=== PATIENT | female | born 1935 | race Caucasian/White ===

== ENCOUNTER 2019-01-18 11:50 | Inpatient (IN) | payer MEDICARE ==
--- NOTE | 2019-01-18 12:22 | ED ---
Altered Mental Status - HPI Summary HPI Summary: This patient is an 83 year old F presenting to ED accompanied by son and daughter with a chief complaint of visual hallucinations. She said that there was an episode where she states there was a person sitting on her cough for the last couple of hours when there was nothing there. The patient lives alone. The patient rates the pain 0/10 in severity. Symptoms aggravated by nothing. Symptoms alleviated by nothing. Patient denies any pain. The son also reports that the patient has been SOB recently upon exertion but the patient does not complain of it. PMHx of dementia, CAD, and stents. Son denies any prior psychiatric issues. - History Of Current Complaint Chief Complaint: EDShortnessOfBreath Stated Complaint: SOB/HALLUCINATING PER PT Time Seen by Provider: 01/18/19 12:07 Hx Obtained From: Patient, Family/Volunteer Fire Fighter - accompanied by son and daugheer Onset/Duration: Still Present Timing: Intermittent Severity Currently: None Aggravating Factor(s): Nothing Alleviating Factor(s): Nothing - Allergies/Home Medications Allergies/Adverse Reactions: Allergies Allergy/AdvReac Type Severity Reaction Status Date / Time No Known Allergies Allergy Verified 01/18/19 13:11 Home Medications: Home Medications Aspirin EC TAB* [Ecotrin EC Low Dose 81 MG*] 81 mg PO DAILY 01/18/19 [History Confirmed 01/18/19] Atorvastatin* [Lipitor*] 40 mg PO DAILY 01/18/19 [History Confirmed 01/18/19] Calcium/Vitamin D TAB 250/125* [Oscal D TAB 250/125*] 500 mg PO DAILY 01/18/19 [ History Confirmed 01/18/19] Donepezil TAB* [Aricept 5 MG TAB*] 10 mg PO BEDTIME 01/18/19 [History Confirmed 01/18/19] Losartan TAB* [Cozaar TAB*] 100 mg PO DAILY 01/18/19 [History Confirmed 01/18/19 ] PARoxetine HCL TAB* [Paxil TAB*] 10 mg PO DAILY 01/18/19 [History Confirmed 06/29] amLODIPine TAB* [Norvasc 5 mg TAB*] 5 mg PO DAILY 01/18/19 [History Confirmed ] PMH/Surg Hx/FS Hx/Imm Hx Cardiovascular History: Reports: Hx Coronary Artery Disease, Other Cardiovascular Problems/Disorders - stents Neurological History: Reports: Hx Dementia Infectious Disease History: No Infectious Disease History: Denies: Traveled Outside the [place] in Last 30 Days - Family History Known Family History: Negative: Cardiac Disease, Hypertension, Diabetes - Social History Alcohol Use: None Hx Substance Use: No Substance Use Type: Reports: None Hx Tobacco Use: No Smoking Status (MU): Never Smoked Tobacco Review of Systems Positive: Other - denies any pain Positive: Shortness Of Breath - per the son, but patient does not complain of such Neurological: Other - visual hallucinations, hx of dementia All Other Systems Reviewed And Are Negative: Yes Physical Exam - Summary Physical Exam Summary: VITAL SIGNS: Reviewed. GENERAL: Patient is an elderly FEMALE who is lying comfortable in the stretcher and in no acute distress. Patient is not in any acute respiratory distress. HEAD AND FACE: No signs of trauma. No ecchymosis, hematomas or skull depressions. No sinus tenderness. EYES: PERRLA, EOMI x 2, No injected conjunctiva, no nystagmus. EARS: Hearing grossly intact. Ear canals and tympanic membranes are within normal limits. MOUTH: Oropharynx within normal limits. NECK: Supple, trachea is midline, no adenopathy, no JVD, no carotid bruit, no c- spine tenderness, neck with full ROM. CHEST: Symmetric, no tenderness at palpation LUNGS: Clear to auscultation bilaterally. No wheezing or crackles. CVS: Regular rate and rhythm, S1 and S2 present, no murmurs or gallops appreciated. ABDOMEN: Soft, non-tender. No signs of distention. No rebound no guarding, and no masses palpated. Bowel sounds are normal. EXTREMITIES: FROM in all major joints, no edema, no cyanosis or clubbing. NEURO: Demented, Alert but not oriented. Speech is normal and follows commands. SKIN: Dry and warm GCS: 15 Triage Information Reviewed: Yes Vital Signs On Initial Exam: Initial Vitals Temp Pulse Resp BP Pulse Ox 98.5 F 93 16 142/89 98 01/18/19 11:55 01/18/19 11:55 01/18/19 11:55 01/18/19 11:55 01/18/19 11:55 Vital Signs Reviewed: Yes Diagnostics - Vital Signs Vital Signs Temp Pulse Resp BP Pulse Ox 01/18/19 11:55 98.5 F 93 16 142/89 98 - Laboratory Result Diagrams: 01/18/19 12:59 01/18/19 12:59 Lab Statement: Any lab studies that have been ordered have been reviewed, and results considered in the medical decision making process. - Radiology CXR Radiology Interpretation Completed By: Radiologist Summary of Radiographic Findings: 1. CHRONIC FINDINGS INCLUDE APPEARANCE OF CHRONIC OBSTRUCTIVE PULMONARY DISEASE WELL MILD CARDIOMEGALY. 2. THERE IS AN AGE-INDETERMINATE LOWER THORACIC WEDGE COMPRESSION FRACTURE. Dr. Seals has reviewed this radiology report. - CT Brain CT CT Interpretation Completed By: Radiologist Summary of CT Findings: 1. NO EVIDENCE FOR ACUTE INTRACRANIAL ABNORMALITY. 2. FINDINGS SUGGESTIVE OF MILD CHRONIC SMALL VESSEL ISCHEMIC CHANGES. Dr. Seals has reviewed this radiology report. - EKG 1226 Cardiac Rate: Tachycardia - 101 BPM EKG Rhythm: Sinus Tachycardia Summary of EKG Findings: Sinus tachycardia at [address] elevations in V1 to V3 1542 Cardiac Rate: NL - 88 BPM EKG Rhythm: Sinus Rhythm EKG Comparison: No Significant Change - from prior EKG at [address] elevations in V1to V3 Re-Evaluation - Re-Evaluation First Eval Re-Evaluation Time: 15:25 Comment: Spoke with the patient's family about her results. Second Eval Re-Evaluation Time: 15:33 Comment: Spoke with patient's family about the consult with Dr. Salter. Third Eval Re-Evaluation Time: 15:37 Comment: Had a long discussion with the son and daughter, Ayah, who is the proxy for the patient. Following the patients wishes, she doesnt want anything invasive done. The son also agrees. They just want medical treatment. Altered Mental Statu Course/Dx - Course Assessment/Plan: This patient is an 83-year-old female who presents to the emergency room with the patients son complaining that the patient is having hallucinations, visual and auditory, and shortness of breath findings for one week and half. The patient reports that she does have any complaints and she denies any chest pain. The patient is alert and not oriented. Patient has past medical history significant for CAD, hypertension, dyslipidemia. Patient has no other complaints. Blood test results without any significant abnormality except for carbon dioxide is 20, creatinine is 1, total bili is 1.4 , CK-MB is 8.2, troponin 0.05. BNP is more than 1300 significant for CHF exacerbation. In the ER the patient was placed in a wire drawing die maker, and she was given an aspirin since the troponin was elevated. Patient was also given Lasix for the CHF. The urinalysis is positive for UTI. The patient was given Rocephin IV. EKG is a sinus rhythm with ST elevations in V1 and V2 and V3 with no significant reciprocal changes. Discussed the case with the patients daughter with the medical proxy and they recommend only medical treatment. The patients daughter reports that the patient doesnt want any aggressive treatment, no CPR and no intubation. Nhi Goode SKEET OPERATOR patient and from the hospital services extensively explained to the patients daughter and son about the risks and benefits of catheterization but the patients son and daughter only want medical treatment for this patient. There will sign the DNR/DNI with the hospitalist services. Patient is alert but not oriented and she is hemodynamically stable. Discussed the case with Dr. Mortensen from the hospitalist services who accepted the patient for admission. - Diagnoses Provider Diagnoses: CHF exacerbation, Elevated troponin During the Visit The Following Alert/Code Occurred: STEMI - Provider Notifications Discussed Care Of Patient With: Riley Lucia Time Discussed With Above Provider: 14:27 Instructed by Provider To: Other - Consulted Dr. Lucia about the patient's case and he accepts the patient for admission. Spoke with Dr. Headley at 1524 and he says to consult with Dr. Salter. Spoke with Dr. Salter at 1530 about the patient's case about the patient and her familys wishes and Dr. Salter agrees with the family. Therefore, no catheterizations will be done. Spoke with Dr. Salter at 1538 and he says to give ASA and heparin and to do an echo. - Critical Care Time Critical Care Time: 30-74 min Discharge - Sign-Out/Discharge Documenting (check all that apply): Patient Departure - admit Patient Received Moderate/Deep Sedation with Procedure: No - Discharge Plan Condition: Stable Disposition: ADMITTED TO [facility] - Billing Disposition and Condition Condition: STABLE Disposition: Admitted to [facility] - Attestation Statements Document Initiated by Scribe: Yes Documenting Scribe: Jono Seymour Provider For Whom Scribe is Documenting (Include Credential): Bryce Seals MD Scribe Attestation: I, Jono Seymour, scribed for Bryce Seals MD on 01/18/19 at 1851. Scribe Documentation Reviewed: Yes Provider Attestation: The documentation as recorded by the scribeJono accurately reflects the service I personally performed and the decisions made by me, Bryce Seals MD Status of Scribe Document: Viewed
[2019-01-18 13:12] LABS: ABS Basophils 0.1 10^3/ul (0-0.2); ABS Eosinophils 0.1 10^3/ul (0-0.6); ABS Lymphocytes 0.7 10^3/ul (1.0-4.8); ABS Monocytes 0.5 10^3/ul (0-0.8); ABS Neutrophils 3.8 10^3/ul (1.5-7.7); Eosinophil % 2.1 %; Hematocrit 39 % (35-47); Lymphocyte % 13.7 %; Mean Corpuscular HGB Conc 34 g/dL (31-36); Mean Corpuscular Hemoglobin 30 pg (27-31); Mean Corpuscular Volume 90 fL (80-97); Mean Platelet Volume 8.9 fL (7.4-10.4); Platelet Count 168 10^3/uL (150-450); Red Blood Count 4.33 10^6 /uL (3.70-4.87); Red Cell Distribution Width 15 % (10.5-15); White Blood Count 5.1 10^3/uL (3.5-10.8)
[2019-01-18 13:36] LABS: ALT 7 U/L (7-52); AST 25 U/L (13-39); Albumin/Globulin Ratio 1.5 (1-3); Alkaline Phosphatase 60 U/L (34-104); Anion Gap 10 mmol/L (2-11); Blood Urea Nitrogen 22 mg/dL (6-24); C Reactive Protein 2.72 mg/L (<8.01); CO2 Carbon Dioxide 20 mmol/L (22-32); Calcium 9.1 mg/dL (8.6-10.3); Chloride 109 mmol/L (101-111); Creatine Kinase 176 U/L (10-223); EGFR African American 63.8 (>60); EGFR Non-African American 52.7 (>60); Globulin 2.6 g/dL (2-4); Glucose 97 mg/dL (70-100); Potassium 4.1 mmol/L (3.5-5.0); Sodium 139 mmol/L (135-145); Total Protein 6.6 g/dL (6.4-8.9)
[2019-01-18 13:41] LABS: CKMB ng/mL 8.2 ng/mL (0.6-6.3)
[2019-01-18 13:46] LABS: Troponin I 0.05 ng/mL (<0.04)
[2019-01-18] MEDS ORDERED: Furosemide IV* 10 MG/ML 2 ML VIAL (20 MG) IV ONE (14:31)
[2019-01-18 15:17] LABS: Urine Appearance Cloudy; Urine Bacteria 2+ (Absent); Urine Bilirubin Negative (Negative); Urine Blood 2+ (Negative); Urine Color Yellow; Urine Glucose Negative (Negative); Urine Ketones Trace (Negative); Urine Nitrite Positive (Negative); Urine Protein Negative (Negative); Urine Red Blood Cell Trace(0-2/hpf) (Absent); Urine Specific Gravity 1.015 (1.010-1.030); Urine Urobilinogen Negative (Negative); Urine White Blood Cell Trace(0-5/hpf) (Absent)
[2019-01-18] MEDS ORDERED: cefTRIAXone(*) 1 GM in NS 0.9% 50 ML* 50 ML IVPB ONE (15:20)
[2019-01-18] MEDS ORDERED: Aspirin 81 mg CHEW TAB* 81 MG TAB.CHEW PO ONE (15:38)
[2019-01-18] MEDS ORDERED: Heparin for STEMI(*) 5,000 UNITS/ML 1 ML VIAL IV ONE (15:39)
[2019-01-18] MEDS ORDERED: Acetaminophen TAB* 325 MG PO PRN (15:53)
[2019-01-18 16:47] LABS: Troponin I 0.06 ng/mL (<0.04)
[2019-01-18] MEDS ORDERED: Lorazepam PYXIS KEY PRN (16:51)
[2019-01-18] MEDS ORDERED: cefTRIAXone(*) 1 GM in NS 0.9% 50 ML* 50 ML IVPB SCH (17:06)
[2019-01-18] MEDS: Heparin DRIP 25,000 UNITS(*) 25,000 UNITS/500 ML BAG IV SCH ×2 (18:08→19:12)
[2019-01-18] MEDS: LORazepam INJ* 2 MG/ML 1 ML VIAL IV PUSH PRN (18:22)
--- NOTE | 2019-01-18 18:36 | HP ---
CC: Dr. Antonella Obrien * HISTORY AND PHYSICAL: DATE OF ADMISSION: 01/18/19 PRIMARY CARE PROVIDER: Dr. Antonella Obrien. ATTENDING PHYSICIAN: Dr. Riley Lucia * (dictated by AUDRA Martin). CHIEF COMPLAINT: Dyspnea on exertion x1 week. HISTORY OF PRESENT ILLNESS: Radha Baker is an 83-year-old white female with past medical history of coronary artery disease, status post 2 stents 20 years ago, anxiety, depression, hypertension, hyperlipidemia and dementia, who presents to the emergency department on direction of her primary care provider' s office. The patient is accompanied by her daughter who is her healthcare provider as well as her son, who provide the vast majority of the patient's history given that the patient is confused at baseline. The patient's daughter reports that the patient has been short of breath at home where the patient lives with her daughter. The shortness of breath has been going on for about 1 week and was especially worsened yesterday and today. This shortness of breath is not occurring at rest, only with exertion. The daughter has not noticed cough. The patient has not complained of difficulty breathing or chest pain, but the daughter does admit that she does not complain of pain very often. When asked directly, the patient denies abdominal pain, shortness of breath, fever, chills, chest pain, nausea, vomiting. The patient additionally denies dysuria. Additionally, the daughter reports that the patient was having visual hallucinations including the patient reporting that she saw a person on the living room couch who was not there and she does not normally have these hallucinations. EMERGENCY DEPARTMENT COURSE: In the emergency department, the patient received 20 mg of IV Lasix. Pertinent labs include BNP over 13,000, troponin of 0.05. When the patient arrived to the emergency department, her vital signs were temperature 98.5, pulse rate 93, respiratory rate 16, oxygen saturation 98% on room air, blood pressure 142/89. Hospitalists were then asked to evaluate the patient for admission. PAST MEDICAL HISTORY: 1. Coronary artery disease, status post 2 stents in 1998. 2. Osteoarthritis. 3. Anxiety. 4. Depression. 5. Hyperlipidemia. 6. Hypertension. 7. Dementia. 8. History of rectal prolapse. 9. History of uterovaginal prolapse. PAST SURGICAL HISTORY: 1. Repair of rectal prolapse. 2. Repair of vaginal prolapse. 3. PCI in 1998. HOME MEDICATIONS: 1. Aspirin 81 mg p.o. daily. 2. Amlodipine 5 mg p.o. daily. 3. Losartan 100 mg p.o. daily. 4. Paxil 10 mg p.o. daily. 5. Donepezil 10 mg p.o. at bedtime. 6. Lipitor 40 mg p.o. daily. 7. Os-Bryson D tab 50/125 two tabs daily. ALLERGIES: No known drug allergies. FAMILY HISTORY: Father of an [place] in his early 70s. Mother of complications of liver disease in her early 70s. SOCIAL HISTORY: The patient smoked very infrequently in her early 20s, and since then, has not smoked. Denies alcohol and drug use. The patient does not work and is . She has 5 children and currently lives with her daughter, Avril Boyce, who is her healthcare proxy; her phone number is [phone]. REVIEW OF SYSTEMS: An 11-point review of systems was completed, and all pertinent positives and negatives are above in the HPI. All other systems are negative. PHYSICAL EXAMINATION GENERAL: Thin, elderly white female, who appears stated age, lying comfortably in hospital bed, appearing in no acute distress. HEENT: Head: Normocephalic, atraumatic. Eyes: PERRL, sclerae anicteric, EOMI. ENT: Lips appear dry. NECK: Neck is supple without JVD. RESPIRATORY: Lungs are clear to auscultation throughout. Chest expansion is equal with respirations. CARDIO: Regular rate with occasionally irregular rhythm consistent with PVCs, which appear on telemetry. No murmurs, rubs, or gallops appreciated. ABDOMEN: Abdomen is soft, nontender, nondistended without masses or hepatosplenomegaly. Negative suprapubic tenderness. EXTREMITIES: No clubbing, edema, or cyanosis. NEUROLOGIC: The patient is alert and oriented only to self. No focal deficits. Cranial nerves II through XII are grossly intact. PSYCH: The patient is not responding to internal stimuli. SKIN: Skin is warm, dry, and intact. DIAGNOSTIC STUDIES/LAB DATA: White blood cell count 5.1, hemoglobin 13, hematocrit 39, platelet count 168. Sodium 139, potassium 4.1, chloride 109, carbon dioxide 20, BUN 22, creatinine 1.00, glucose is 97. Lactic acid 1.2, calcium 9.1. CK-MB 8.2, troponin 0.05, BNP is over 1300. Urinalysis with trace ketones, 2+ blood, nitrite is positive, trace white blood cell, trace red blood cell, positive urine bacteria, hyaline casts present. Chest x-ray on 01/18/19, impression: Chronic findings include appearance of chronic obstructive pulmonary disease as well as mild cardiomegaly. There is an age-indeterminate lower thoracic wedge compression fracture. Brain CT on 01/18/19, impression: "No evidence for acute intracranial abnormality. The findings suggested of mild chronic small vessel ischemic changes." EKG at 1226 on 01/18/[address] elevation in lead V1 through V3 with T- wave inversion in V4 and approximately [address] depression in leads II and III and aVF with an irregular rhythm and heart rate of 101 beats per minute. Repeat EKG at 1542 on the same date demonstrates similar pattern of ST elevation in leads V1 through V3 and ST depressions in lead II, III, and aVF. An EKG from 2012 from the patient's primary care office was obtained and did not have evidence of any of these ST changes or more T-wave inversions. ASSESSMENT AND PLAN: Radha Baker is an 83-year-old white female with past medical history significant for coronary artery disease, status post 2 stents in 1998, anxiety, depression, hypertension, hyperlipidemia and dementia, who presents to the emergency department with dyspnea on exertion x1 week and visual hallucinations. The patient will be admitted inpatient for: 1. ST segment elevation myocardial infarction. The patient has been initiated on heparin bolus in the emergency department, and when the patient is admitted to the telemetry unit, she will be started on a heparin drip. Her troponins will be trended as her initial is 0.05. The patient is not experiencing dyspnea at rest in the emergency department and is asymptomatic. The patient's family was discussed the options for interventional cardiology and like to continue with only medical management at this time given the patient's history of worsening mental status under anesthesia as well as her dementia. The patient's healthcare proxy is her daughter Avril who discussed this with the patient's other children and made this decision. Dr. Headley has been consulted and will be seeing the patient. A transthoracic echo has been completed in the emergency department and is pending. Hemoglobin A1c and LDL will be ordered for the morning and we will continue to monitor on telemetry. The patient received IV Lasix in the emergency department and we will not continue this. The patient did receive an aspirin load in the emergency department as well. We will be continuing the patient's home Lipitor daily, baby aspirin, amlodipine, and losartan. We will add metoprolol po. 2. Congestive heart failure. While patient does not have a diagnosis of congestive heart failure per her family nor the records produced by the patient' s daughter, it appears that an old echocardiogram demonstrates EF of 45%. Echo performed today in ED has report pending still. Will treat with lasix 20 mg po tomorrow. No evidence of acute exacerbation symptomatically as lungs are clear and there is no peripheral edema, despite BNP of >1300. This elevated BNP is likely most related to STEMI. 3. Positive urinalysis. It is possible that this was not a truly clean catch given that the patient does have dementia; however, I will treat this empirically with ceftriaxone and continue. She did receive 1 dose of ceftriaxone in the emergency department. I will continue this. Given that the patient is having visual hallucinations at home and this may be consequence of having urinary tract infection. She does not have other evidence of infection such as dysuria, leukocytosis, or fever. The urine culture is pending and if negative, the antibiotic can be discontinued. However, it is possible this visual hallucination just represents an advancement of her dementia. 4. Anxiety/depression. We will continue the patient's home Paxil. I have ordered p.r.n. Ativan 0.5 mg IV for p.r.n. anxiety given that the patient is high risk for delirium and acute anxiety. 5. Hypertension. The patient has been normotensive in the emergency department. We will continue her home losartan and amlodipine. 6. Dementia. As previously mentioned, the visual hallucinations may be community representative of an advancement of her dementia. We will continue her donepezil and continue to monitor. 7. FEN. Heart healthy. No caffeine diet has been ordered. 8. Code status. DNR/DNI. MOLST has been updated. 9. DVT prophylaxis. Additional chemical prophylaxis is not indicated in the setting of IV heparin. TIME SPENT: Approximately 60 minutes was spent on this admission; approximately half of this time was spent at bedside. This case has been reviewed by my attending, Dr. Riley Lucia, and he agrees with this plan of care. AUDRA MARTIN [id number]/[facility] #: [id number] TITO
[2019-01-18 19:31] LABS: Troponin I 0.06 ng/mL (<0.04)
--- NOTE | 2019-01-18 20:32 | CONS ---
CC: Hospitalist Service; Dr. Obrien; Dr. Headley. CARDIOLOGY CONSULTATION REPORT: DATE OF CONSULT: 01/18/19 HISTORY OF PRESENT ILLNESS: I was asked by hospitalist service to see this 83- year- old female patient who was brought in for a week or so not feeling well and short of breath. The patient lives alone. She does have dementia. History is very limited and obtained from the medical records as well as from her son who was available at bedside. The patient does have in the emergency room EKG and that EKG actually showed the patient to have ST elevations, the initial EKG was [address] elevation V1, V2, and V3 consistent with injury pattern. There is tachycardia, sinus rhythm, heart rate 101 and borderline left atrial abnormality and reciprocal ST depressions and T-wave inversion. Apparently, as per the ER physician , discussed with the patient and they want the patient to be DNR and DNI and the patient only for medical treatment. She is to be admitted to telemetry floor for medical treatment. There is no active chest pain, no nausea, no vomiting, no hematochezia, no skin rash, no fever, no chills, no palpitations, no tachycardia is appreciated;. PAST MEDICAL HISTORY: Anxiety, coronary artery disease, stent to the LAD in 1998, hyperlipidemia, hypertension, osteoporosis. She does have also in the past medical history, history of anxiety, and systemic arterial hypertension. Cardiology consult was requested for her abnormal EKG and troponin and STEMI, but the family for medical treatment. Other medical information as outlined above and that is the limited information that we are able to obtain. Of note, the patient had an echocardiogram done 08/14/17 and the conclusion for that echo at that time, LVH, left atrial enlargement, EF 45 to 50%, moderate aortic insufficiency, mild to moderate tricuspid insufficiency. MEDICATIONS: She was supposed to be on outpatient: 1. Amlodipine 5 mg daily. 2. Aspirin 81 mg daily. 3. Atenolol 25 mg daily. 4. Lipitor 40 mg daily. 5. Losartan 100 mg daily. 6. Sublingual nitroglycerin 0.4 mg p.r.n. 5. Paxil 10 mg daily. FAMILY HISTORY: No family history of premature CAD. SOCIAL HISTORY: No history of smoking, drinking or illicit drug use. She lives by herself. PHYSICAL EXAM: On exam, she is awake, alert, but she is disoriented to place, person, and time. She does not seem to be in acute distress. Vitals: Blood pressure 142/81, pulse 88, sinus rhythm, respiratory rate 18 ,she is afebrile. Head and Neck Exam: Normocephalic atraumatic head. Neck is supple. JVP is not elevated. No carotid bruits. No masses in the neck is appreciated. Ear, Nose and Throat: Essentially benign. Chest: Clear to auscultation. No rales , no wheezes. No added sounds appreciated. Heart: Normal, S1, S2. No added sounds. No gallops. No rubs appreciated. There is a grade 2/6 diastolic murmur in the sternal border. Abdomen: Benign. Positive bowel sounds. Extremities: No edema, no cyanosis, no clubbing. Skin exam is normal. Psych: Normal affect and mood. VOICER: No focal deficits appreciated. DIAGNOSTIC STUDIES/LAB DATA: Her EKG as described. Her labs showed the following, white blood cell is 5.1, hemoglobin 13, hematocrit 39, and platelets 168,000. Chemistry: Sodium is 139, potassium 4.1 , chloride 109, BUN 22, creatinine 1. Troponin were 0.05, 0.06. BMP more than 1300. Chest x-ray reported the patient to have chronic findings including the chronic obstructive pulmonary disease. IMPRESSION: The patient is an 83-year-old with: 1. Presentation with ST-elevation myocardial infarction of the anterior wall. 2. The patient is DNR/DNI as discussed above for medical treatment only. 3. Systemic anti-hypertension. 4. Hyperlipidemia. 5. Known history of coronary artery disease with stent to the LAD in 1998. 6. The patient with significant dementia. PLAN: I had a lengthy talk with the patient's family, her son was at bedside today as well as with the hospitalist service. As per the above, we will continue with the medical treatment. At the present time, follow up on serial troponin, EKG. She did have an echocardiogram that was done today that showed left ventricular function to be severely reduced with an EF 25% to 30% and anterior apical wall hypokinesis as well. There is moderate mitral insufficiency and mild aortic stenosis and mild to moderate aortic insufficiency. Medical ventura, aspirin, statins, beta-missael treatment, MARTÍN inhibitor given her severe cardiomyopathy, and nitro if needed p.r.n. for chest pain. Prognosis is guarded as best at the present time. The above was discussed at length. More than half of at least 60 to 65 plus minutes was face to face educational counseling and making further recommendation decision. [id number]/[facility] #: [id number] MTDAshlyn
[2019-01-18] MEDS: Metoprolol Tartrate TAB* 25 MG PO SCH (21:59)
[2019-01-18] MEDS: Donepezil TAB* 5 MG PO SCH (21:59)
[2019-01-19] MEDS ORDERED: Heparin VIAL(*) 5000 UNITS/ML VIAL (FIVE THOUSAND) IV SCH (01:00)
[2019-01-19 06:53] LABS: Hematocrit 39 % (35-47); Mean Corpuscular HGB Conc 34 g/dL (31-36); Mean Corpuscular Hemoglobin 30 pg (27-31); Mean Corpuscular Volume 90 fL (80-97); Mean Platelet Volume 8.7 fL (7.4-10.4); Platelet Count 156 10^3/uL (150-450); Red Blood Count 4.29 10^6 /uL (3.70-4.87); Red Cell Distribution Width 14 % (10.5-15); White Blood Count 4.5 10^3/uL (3.5-10.8)
[2019-01-19 07:14] LABS: BUN/Creatinine Ratio 19.4 (8-20); Calcium 8.6 mg/dL (8.6-10.3); EGFR African American 65.3 (>60); EGFR Non-African American 53.9 (>60); HDL Cholesterol 44.8 mg/dL; Potassium 3.4 mmol/L (3.5-5.0)
[2019-01-19 07:27] LABS: ABS Eosinophils 0.2 10^3/ul (0-0.6); ABS Neutrophils 2.9 10^3/ul (1.5-7.7)
[2019-01-19] MEDS: Losartan TAB* 25 MG PO SCH (08:01)
[2019-01-19] MEDS: Atorvastatin* 40 MG TAB PO SCH (08:01)
[2019-01-19] MEDS: Furosemide TAB* 20 MG PO SCH (08:01)
[2019-01-19] MEDS: PARoxetine HCL TAB* 10 MG PO SCH (08:02)
[2019-01-19] MEDS: Aspirin EC TAB* 81 MG TAB.EC PO SCH (08:02)
[2019-01-19] MEDS: Calcium/Vitamin D TAB 250/125* TAB PO SCH (08:02)
[2019-01-19] MEDS: Metoprolol Tartrate TAB* 25 MG PO SCH ×2 (08:13→21:46)
[2019-01-19] MEDS: amLODIPine TAB* 5 MG PO SCH (08:13)
[2019-01-19] MEDS: LORazepam INJ* 2 MG/ML 1 ML VIAL IV PUSH PRN ×2 (14:31→21:29)
--- NOTE | 2019-01-19 14:56 | PN ---
Subjective Date of Service: 01/19/19 Interval History: Pt examined at bedside.D/w daughter, family.No cp no sob Denies any complaints Objective Active Medications: Acetaminophen (Tylenol Tab*) 650 mg PO Q4H PRN PRN Reason: FEVER/PAIN Amlodipine Besylate (Norvasc Tab*) 5 mg PO DAILY [facility] Last Admin: 01/19/19 08:13 Dose: 5 mg Aspirin (Aspirin Ec Tab*) 81 mg PO DAILY [facility] Last Admin: 01/19/19 08:02 Dose: 81 mg Atorvastatin Calcium (Lipitor*) 40 mg PO DAILY [facility] Last Admin: 01/19/19 08:01 Dose: 40 mg Calcium/Vitamin D (Oscal D Tab 250/125*) 2 tab PO DAILY [facility] Last Admin: 01/19/19 08:02 Dose: 2 tab Donepezil HCl (Aricept Tab*) 10 mg PO BEDTIME [facility] Last Admin: 01/18/19 21:59 Dose: 10 mg Furosemide (Lasix Tab*) 20 mg PO DAILY [facility] Last Admin: 01/19/19 08:01 Dose: 20 mg Heparin Sodium (Porcine) (Heparin Vial(*)) 0 units IV .PER PROTOCOL [facility] Last Admin: 01/19/19 00:31 Dose: 1,350 units Heparin Sodium/Dextrose (Heparin Drip 25,000 Units(*)) 25,000 units in 500 mls @ 0 mls/hr IV PER RATE [facility]; Protocol Last Admin: 01/18/19 19:12 Dose: 9 mls/hr Ceftriaxone Sodium 1 gm/ (Sodium Chloride) 50 mls @ 200 mls/hr IVPB Q24H [facility] Lorazepam (Ativan Inj*) 0.5 mg IV PUSH Q4H PRN PRN Reason: ANXIETY Last Admin: 01/19/19 14:31 Dose: 0.5 mg Losartan Potassium (Cozaar Tab*) 100 mg PO DAILY [facility] Last Admin: 01/19/19 08:01 Dose: 100 mg Metoprolol Tartrate (Lopressor Tab*) 25 mg PO BID [facility] Last Admin: 01/19/19 08:13 Dose: 25 mg Miscellaneous (Ativan Pyxis Delatorre) 1 ea N/A .ATIVAN IV DELATORRE PRN PRN Reason: PYXIS DELATORRE Paroxetine HCl (Paxil Tab*) 10 mg PO DAILY [facility] Last Admin: 01/19/19 08:02 Dose: 10 mg Vital Signs - 8 hr 01/19/19 01/19/19 01/19/19 07:21 08:00 08:05 Temperature 98.1 F Pulse Rate 67 Respiratory 16 16 Rate Blood Pressure 102/48 132/65 (mmHg) O2 Sat by Pulse 97 Oximetry 01/19/19 01/19/19 11:24 14:31 Temperature 98.3 F Pulse Rate 66 Respiratory 16 24 Rate Blood Pressure 113/59 (mmHg) O2 Sat by Pulse 99 Oximetry Oxygen Devices in Use Now: None Eyes: No Scleral Icterus Neck: NL Appearance and Movements; NL JVP Respiratory: Symmetrical Chest Expansion and Respiratory Effort, Clear to Auscultation Cardiovascular: NL Sounds; No Murmurs; No JVD Abdominal: NL Sounds; No Tenderness; No Distention Extremities: No Edema Skin: No Rash or Ulcers Neurological: Alert and Oriented x 3, - Result Diagrams: 01/19/19 06:42 01/19/19 06:42 Microbiology and Other Data: Microbiology 01/18/19 13:13 Aerobic Blood Culture - Preliminary Blood Venous No Growth Day 1 Anaerobic Blood Culture - Preliminary No Growth Day 1 01/18/19 12:59 Aerobic Blood Culture - Preliminary Blood Venous No Growth Day 1 Anaerobic Blood Culture - Preliminary No Growth Day 1 Assess/Plan/Problems-Billing Assessment: - Patient Problems (1) Myocardial infarction Current Visit: Yes Status: Acute Code(s): I21.9 - ACUTE MYOCARDIAL INFARCTION, UNSPECIFIED SNOMED Code(s): 20513013 Comment: Anterior STEMI noted on EKG Appreciate cardiology input Family opted for medical management and no intervention Continue Heparin drip another 24h Continue aspirin, B missael,MARTÍN,statin Troponin did not increase.Already noted to have Q waves on EKG Denies any CP (2) CHF exacerbation Current Visit: Yes Status: Acute Code(s): I50.9 - HEART FAILURE, UNSPECIFIED SNOMED Code(s): 971920875 Comment: Was given IV lasix EF 25 to 30% Continue PO lasix 20 mg In the setting of [place] (3) UTI (urinary tract infection) Current Visit: Yes Status: Acute Comment: Urine cx pending Continue Ceftriaxone (4) Urinary retention with incomplete bladder emptying Current Visit: Yes Status: Acute Code(s): R33.9 - RETENTION OF URINE, UNSPECIFIED SNOMED Code(s): 599906883 Comment: In setting of UTI Straight Cath once Status and Disposition: Family want to learn about palliative care/hospice options Will req palliative/hospice consult PT/OT May need placement Dementia
[2019-01-19] MEDS: cefTRIAXone(*) 1 GM in NS 0.9% 50 ML* 50 ML IVPB SCH (16:24)
[2019-01-19] MEDS: Donepezil TAB* 5 MG PO SCH (21:46)
[2019-01-20] MEDS: LORazepam INJ* 2 MG/ML 1 ML VIAL IV PUSH PRN (04:05)
[2019-01-20 05:51] LABS: ABS Basophils 0.1 10^3/ul (0-0.2); ABS Eosinophils 0.3 10^3/ul (0-0.6); ABS Lymphocytes 1.1 10^3/ul (1.0-4.8); ABS Monocytes 0.5 10^3/ul (0-0.8); ABS Neutrophils 3.3 10^3/ul (1.5-7.7); Eosinophil % 5.2 %; Hematocrit 44 % (35-47); Hemoglobin 14.6 g/dL (12.0-16.0); Lymphocyte % 20.8 %; Mean Corpuscular HGB Conc 33 g/dL (31-36); Mean Corpuscular Hemoglobin 30 pg (27-31); Mean Corpuscular Volume 91 fL (80-97); Mean Platelet Volume 9.2 fL (7.4-10.4); Nucleated Red Blood Cells % 0.1; Platelet Count 183 10^3/uL (150-450); Red Blood Count 4.84 10^6 /uL (3.70-4.87); Red Cell Distribution Width 15 % (10.5-15); White Blood Count 5.2 10^3/uL (3.5-10.8)
[2019-01-20 06:13] LABS: BUN/Creatinine Ratio 25.2 (8-20); Calcium 9.5 mg/dL (8.6-10.3); EGFR African American 61.6 (>60); EGFR Non-African American 50.9 (>60); Potassium 3.7 mmol/L (3.5-5.0)
[2019-01-20] MEDS: Metoprolol Tartrate TAB* 25 MG PO SCH ×2 (08:24→21:01)
[2019-01-20] MEDS: Aspirin EC TAB* 81 MG TAB.EC PO SCH (08:24)
[2019-01-20] MEDS: Losartan TAB* 25 MG PO SCH (08:24)
[2019-01-20] MEDS: Furosemide TAB* 20 MG PO SCH (08:24)
[2019-01-20] MEDS: Calcium/Vitamin D TAB 250/125* TAB PO SCH (08:24)
[2019-01-20] MEDS: amLODIPine TAB* 5 MG PO SCH (08:24)
[2019-01-20] MEDS: Atorvastatin* 40 MG TAB PO SCH (08:24)
[2019-01-20] MEDS: PARoxetine HCL TAB* 10 MG PO SCH (08:26)
--- NOTE | 2019-01-20 13:55 | PN ---
Subjective Date of Service: 01/20/19 Interval History: Denies any complaints.No sob/cp. has a sitter.some sun downing Objective Active Medications: Acetaminophen (Tylenol Tab*) 650 mg PO Q4H PRN PRN Reason: FEVER/PAIN Amlodipine Besylate (Norvasc Tab*) 5 mg PO DAILY [facility] Last Admin: 01/20/19 08:24 Dose: 5 mg Aspirin (Aspirin Ec Tab*) 81 mg PO DAILY [facility] Last Admin: 01/20/19 08:24 Dose: 81 mg Atorvastatin Calcium (Lipitor*) 40 mg PO DAILY [facility] Last Admin: 01/20/19 08:24 Dose: 40 mg Calcium/Vitamin D (Oscal D Tab 250/125*) 2 tab PO DAILY [facility] Last Admin: 01/20/19 08:24 Dose: 2 tab Donepezil HCl (Aricept Tab*) 10 mg PO BEDTIME [facility] Last Admin: 01/19/19 21:46 Dose: Not Given Furosemide (Lasix Tab*) 20 mg PO DAILY [facility] Last Admin: 01/20/19 08:24 Dose: 20 mg Heparin Sodium (Porcine) (Heparin Vial(*)) 0 units IV .PER PROTOCOL [facility] Last Admin: 01/19/19 00:31 Dose: 1,350 units Heparin Sodium (Porcine) (Heparin Vial(*)) 5,000 units SUBCUT Q12HR [facility] Ceftriaxone Sodium 1 gm/ (Sodium Chloride) 50 mls @ 200 mls/hr IVPB Q24H [facility] Last Admin: 01/19/19 16:24 Dose: 200 mls/hr Lorazepam (Ativan Inj*) 0.5 mg IV PUSH Q4H PRN PRN Reason: ANXIETY Last Admin: 01/20/19 04:05 Dose: 0.5 mg Losartan Potassium (Cozaar Tab*) 100 mg PO DAILY [facility] Last Admin: 01/20/19 08:24 Dose: 100 mg Metoprolol Tartrate (Lopressor Tab*) 25 mg PO BID [facility] Last Admin: 01/20/19 08:24 Dose: 25 mg Miscellaneous (Ativan Pyxis Delatorre) 1 ea N/A .ATIVAN IV DELATORRE PRN PRN Reason: PYXIS DELATORRE Paroxetine HCl (Paxil Tab*) 10 mg PO DAILY [facility] Last Admin: 01/20/19 08:26 Dose: 10 mg Vital Signs - 8 hr 01/20/19 01/20/19 07:48 08:00 Temperature 97.7 F Pulse Rate 77 Respiratory 18 17 Rate Blood Pressure 120/75 (mmHg) O2 Sat by Pulse 98 Oximetry Oxygen Devices in Use Now: None Eyes: No Scleral Icterus Neck: NL Appearance and Movements; NL JVP Respiratory: Symmetrical Chest Expansion and Respiratory Effort, Clear to Auscultation Cardiovascular: NL Sounds; No Murmurs; No JVD, RRR Abdominal: NL Sounds; No Tenderness; No Distention Extremities: No Edema Neurological: Alert and Oriented x 3 Result Diagrams: 01/20/19 04:59 01/20/19 04:59 Microbiology and Other Data: Microbiology 01/18/19 13:13 Aerobic Blood Culture - Preliminary Blood Venous No Growth Day 1 Anaerobic Blood Culture - Preliminary No Growth Day 1 01/18/19 12:59 Aerobic Blood Culture - Preliminary Blood Venous No Growth Day 1 Anaerobic Blood Culture - Preliminary No Growth Day 1 Assess/Plan/Problems-Billing Assessment: - Patient Problems (1) Myocardial infarction Current Visit: Yes Status: Acute Code(s): I21.9 - ACUTE MYOCARDIAL INFARCTION, UNSPECIFIED SNOMED Code(s): 62074982 Comment: Anterior STEMI noted on EKG Appreciate cardiology input Family opted for medical management and no intervention On heparin drip for 48h. Will hold and transition to sq heparin dvt propylaxis dose Continue aspirin, B missael,MARTÍN,statin Troponin did not increase.Already noted to have Q waves on EKG Denies any CP (2) CHF exacerbation Current Visit: Yes Status: Acute Code(s): I50.9 - HEART FAILURE, UNSPECIFIED SNOMED Code(s): 743166833 Comment: Was given IV lasix EF 25 to 30% Continue PO lasix 20 mg In the setting of [place] (3) UTI (urinary tract infection) Current Visit: Yes Status: Acute Comment: Urine cx pending Continue Ceftriaxone (4) Urinary retention with incomplete bladder emptying Current Visit: Yes Status: Acute Code(s): R33.9 - RETENTION OF URINE, UNSPECIFIED SNOMED Code(s): 142974324 Comment: In setting of UTI Straight Cath again today Status and Disposition: Family want to learn about palliative care/hospice options Will req palliative/hospice consult PT/OT Dementia with sun downing.Will likely need placement
[2019-01-20 14:39] LABS: ABS Basophils 0.1 10^3/ul (0-0.2); ABS Eosinophils 0.3 10^3/ul (0-0.6); ABS Lymphocytes 0.7 10^3/ul (1.0-4.8); ABS Monocytes 0.6 10^3/ul (0-0.8); ABS Neutrophils 4.2 10^3/ul (1.5-7.7); Eosinophil % 4.4 %; Hematocrit 38 % (35-47); Hemoglobin 12.9 g/dL (12.0-16.0); Lymphocyte % 12.6 %; Mean Corpuscular HGB Conc 34 g/dL (31-36); Mean Corpuscular Hemoglobin 31 pg (27-31); Mean Corpuscular Volume 90 fL (80-97); Mean Platelet Volume 8.8 fL (7.4-10.4); Nucleated Red Blood Cells % 0.2; Platelet Count 196 10^3/uL (150-450); Red Blood Count 4.24 10^6 /uL (3.70-4.87); Red Cell Distribution Width 15 % (10.5-15); White Blood Count 5.8 10^3/uL (3.5-10.8)
[2019-01-20 14:43] LABS: INR 1.09 (0.82-1.09)
[2019-01-20] MEDS: cefTRIAXone(*) 1 GM in NS 0.9% 50 ML* 50 ML IVPB SCH (15:55)
[2019-01-20 16:07] LABS: EGFR Non-African American 54.6 (>60)
[2019-01-20] MEDS: Heparin VIAL(*) 5000 UNITS/ML VIAL (FIVE THOUSAND) SUBCUT SCH (21:01)
[2019-01-20] MEDS: Donepezil TAB* 5 MG PO SCH (21:01)
[2019-01-20] MEDS ORDERED: Ondansetron INJ* 2 MG/ML VIAL IV PRN (21:01)
[2019-01-21] MEDS: LORazepam INJ* 2 MG/ML 1 ML VIAL IV PUSH PRN ×3 (02:26→21:46)
[2019-01-21 05:46] LABS: ABS Basophils 0.1 10^3/ul (0-0.2); ABS Eosinophils 0.3 10^3/ul (0-0.6); ABS Lymphocytes 1.1 10^3/ul (1.0-4.8); ABS Monocytes 0.6 10^3/ul (0-0.8); ABS Neutrophils 4.3 10^3/ul (1.5-7.7); Eosinophil % 4.3 %; Hematocrit 38 % (35-47); Hemoglobin 12.5 g/dL (12.0-16.0); Lymphocyte % 17.6 %; Mean Corpuscular HGB Conc 33 g/dL (31-36); Mean Corpuscular Hemoglobin 30 pg (27-31); Mean Corpuscular Volume 91 fL (80-97); Mean Platelet Volume 8.8 fL (7.4-10.4); Nucleated Red Blood Cells % 0.1; Platelet Count 182 10^3/uL (150-450); Red Blood Count 4.14 10^6 /uL (3.70-4.87); Red Cell Distribution Width 15 % (10.5-15); White Blood Count 6.2 10^3/uL (3.5-10.8)
[2019-01-21 06:02] LABS: BUN/Creatinine Ratio 25.3 (8-20); Calcium 8.7 mg/dL (8.6-10.3); EGFR African American 64.5 (>60); EGFR Non-African American 53.3 (>60); Potassium 3.8 mmol/L (3.5-5.0)
[2019-01-21] MEDS: Losartan TAB* 25 MG PO SCH (07:51)
[2019-01-21] MEDS: Metoprolol Tartrate TAB* 25 MG PO SCH ×2 (07:51→19:23)
[2019-01-21] MEDS: Heparin VIAL(*) 5000 UNITS/ML VIAL (FIVE THOUSAND) SUBCUT SCH ×2 (07:52→19:23)
[2019-01-21] MEDS: Atorvastatin* 40 MG TAB PO SCH (07:52)
[2019-01-21] MEDS: Aspirin EC TAB* 81 MG TAB.EC PO SCH (07:52)
[2019-01-21] MEDS: Calcium/Vitamin D TAB 250/125* TAB PO SCH (07:52)
[2019-01-21] MEDS: Furosemide TAB* 20 MG PO SCH (07:52)
[2019-01-21] MEDS: amLODIPine TAB* 5 MG PO SCH (07:52)
[2019-01-21] MEDS: PARoxetine HCL TAB* 10 MG PO SCH (07:52)
--- NOTE | 2019-01-21 14:22 | CONSULT ---
Palliative / Hospice Consult Ordering Provider: Brigida Ariza - PCP-Camille Referal Reason: goals of care/placement - Subjective Code Status: DNR Advance Directives Location: In Chart [facility] Part A Completed: Yes - on chart [facility] Part E Completed:: Yes - on chart - History or Present Illness History or Present Illness: 83yo female who lives by herself was brought to ER for SOB and found to be having STEMI and UTI. Family opted for medical management and no invasive intervention. PMH significant for CAD s/p stent 1999, anxiety, depression, hyperlipidemia, HTN, mild-moderate dementia and osteoarthritis. studies include CXR-COPD, cardiomyopathy and old compression fx, Ekg-sinus tach ST elevation in V1-3, brain CT mild chronic small vessel ischemic changes, ECHO EF 25-30% which is decreased from 45%, H/H 12.9/38, BUN/Cr 25..97 egfr 54.6 tprot 6.6 & alb 4. Pt is non smoker, no etoh no drugs has 5 children Avril is her HCP [phone]. All history is from daughter and medical records. Lab Values: Abnormal Lab Results 01/20/19 01/20/19 01/20/19 14:29 14:29 14:29 WBC 5.8 RBC 4.24 Hgb 12.9 Hct 38 MCV 90 MCH 31 MCHC 34 RDW 15 Plt Count 196 MPV 8.8 Neut % (Auto) 72.2 Lymph % (Auto) 12.6 [place] % (Auto) 9.6 Eos % (Auto) 4.4 Baso % (Auto) 1.2 Absolute Neuts (auto) 4.2 Absolute Lymphs (auto) 0.7 L Absolute Monos (auto) 0.6 Absolute Eos (auto) 0.3 Absolute Basos (auto) 0.1 Absolute Nucleated RBC 0.0 Nucleated RBC % 0.2 INR (Anticoag Therapy) 1.09 APTT Sodium Potassium Chloride Carbon Dioxide Anion Gap BUN 25 H Creatinine 0.97 H Est GFR ( Amer) 66.0 Est GFR (Non-Af Amer) 54.6 BUN/Creatinine Ratio Glucose Calcium 01/20/19 01/21/19 01/21/19 14:29 05:39 05:39 WBC 6.2 RBC 4.14 Hgb 12.5 Hct 38 MCV 91 MCH 30 MCHC 33 RDW 15 Plt Count 182 MPV 8.8 Neut % (Auto) 68.1 Lymph % (Auto) 17.6 [place] % (Auto) 8.9 Eos % (Auto) 4.3 Baso % (Auto) 1.1 Absolute Neuts (auto) 4.3 Absolute Lymphs (auto) 1.1 Absolute Monos (auto) 0.6 Absolute Eos (auto) 0.3 Absolute Basos (auto) 0.1 Absolute Nucleated RBC 0.0 Nucleated RBC % 0.1 INR (Anticoag Therapy) APTT 44.8 H Sodium 140 Potassium 3.8 Chloride 108 Carbon Dioxide 24 Anion Gap 8 BUN 25 H Creatinine 0.99 H Est GFR ( Amer) 64.5 Est GFR (Non-Af Amer) 53.3 BUN/Creatinine Ratio 25.3 H Glucose 93 Calcium 8.7 Laboratory Last Values WBC 6.2 10^3/uL (3.5-10.8) 01/21/19 05:39 RBC 4.14 10^6 /uL (3.70-4.87) 01/21/19 05:39 Hgb 12.5 g/dL (12.0-16.0) 01/21/19 05:39 Hct 38 % (35-47) 01/21/19 05:39 MCV 91 fL (80-97) 01/21/19 05:39 MCH 30 pg (27-31) 01/21/19 05:39 MCHC 33 g/dL (31-36) 01/21/19 05:39 RDW 15 % (10.5-15) 01/21/19 05:39 Plt Count 182 10^3/uL (150-450) 01/21/19 05:39 MPV 8.8 fL (7.4-10.4) 01/21/19 05:39 Neut % (Auto) 68.1 % 01/21/19 05:39 Lymph % (Auto) 17.6 % 01/21/19 05:39 [place] % (Auto) 8.9 % 01/21/19 05:39 Eos % (Auto) 4.3 % 01/21/19 05:39 Baso % (Auto) 1.1 % 01/21/19 05:39 Absolute Neuts (auto) 4.3 10^3/ul (1.5-7.7) 01/21/19 05:39 Absolute Lymphs (auto) 1.1 10^3/ul (1.0-4.8) 01/21/19 05:39 Absolute Monos (auto) 0.6 10^3/ul (0-0.8) 01/21/19 05:39 Absolute Eos (auto) 0.3 10^3/ul (0-0.6) 01/21/19 05:39 Absolute Basos (auto) 0.1 10^3/ul (0-0.2) 01/21/19 05:39 Absolute Nucleated RBC 0.0 10^3/ul 01/21/19 05:39 Neutrophils % 64.0 % 01/19/19 06:42 Lymphocytes % 23.0 % 01/19/19 06:42 Monocytes % 8.0 % 01/19/19 06:42 Eosinophils % 4.0 % 01/19/19 06:42 Basophils % 1.0 % 01/19/19 06:42 Nucleated RBC % 0.1 01/21/19 05:39 Abs Neuts (Manual) 2.9 10^3/ul (1.5-7.7) 01/19/19 06:42 Abs Lymphs (Manual) 1.0 10^3/ul (1.0-4.8) 01/19/19 06:42 Abs Monocytes (Manual) 0.4 10^3/ul (0-0.8) 01/19/19 06:42 Absolute Eos (Manual) 0.2 10^3/ul (0-0.6) 01/19/19 06:42 Abs Basophils (Manual) 0.0 10^3/ul (0-0.2) 01/19/19 06:42 Normal RBC Morphology Normal (Normal) 01/19/19 06:42 INR (Anticoag Therapy) 1.09 (0.82-1.09) 01/20/19 14:29 APTT 44.8 seconds (26.0-36.3) H 01/20/19 14:29 Sodium 140 mmol/L (135-145) 01/21/19 05:39 Potassium 3.8 mmol/L (3.5-5.0) 01/21/19 05:39 Chloride 108 mmol/L (101-111) 01/21/19 05:39 Carbon Dioxide 24 mmol/L (22-32) 01/21/19 05:39 Anion Gap 8 mmol/L (2-11) 01/21/19 05:39 BUN 25 mg/dL (6-24) H 01/21/19 05:39 Creatinine 0.99 mg/dL (0.51-0.95) H 01/21/19 05:39 Est GFR ( Amer) 64.5 (>60) 01/21/19 05:39 Est GFR (Non-Af Amer) 53.3 (>60) 01/21/19 05:39 BUN/Creatinine Ratio 25.3 (8-20) H 01/21/19 05:39 Glucose 93 mg/dL (70-100) 01/21/19 05:39 Hemoglobin A1c 5.7 % (4.0-5.6) H 01/19/19 06:42 Lactic Acid 1.2 mmol/L (0.5-2.0) 01/18/19 12:59 Calcium 8.7 mg/dL (8.6-10.3) 01/21/19 05:39 Total Bilirubin 1.40 mg/dL (0.2-1.0) H 01/18/19 12:59 AST 25 U/L (13-39) 01/18/19 12:59 ALT 7 U/L (7-52) 01/18/19 12:59 Alkaline Phosphatase 60 U/L (34-104) 01/18/19 12:59 Total Creatine Kinase 176 U/L (10-223) 01/18/19 12:59 CK-MB (CK-2) 8.2 ng/mL (0.6-6.3) H 01/18/19 12:59 Troponin I 0.06 ng/mL (<0.04) H* 01/18/19 19:05 C-Reactive Protein 2.72 mg/L (<8.01) 01/18/19 12:59 B-Natriuretic Peptide > 1300 pg/mL (<=100) H 01/18/19 12:59 Total Protein 6.6 g/dL (6.4-8.9) 01/18/19 12:59 Albumin 4.0 g/dL (3.2-5.2) 01/18/19 12:59 Globulin 2.6 g/dL (2-4) 01/18/19 12:59 Albumin/Globulin Ratio 1.5 (1-3) 01/18/19 12:59 Triglycerides 81 mg/dL 01/19/19 06:42 Cholesterol 181 mg/dL 01/19/19 06:42 LDL Cholesterol 120 mg/dL 01/19/19 06:42 HDL Cholesterol 44.8 mg/dL 01/19/19 06:42 Urine Color Yellow 01/18/19 14:00 Urine Appearance Cloudy 01/18/19 14:00 Urine pH 5.0 (5-9) 01/18/19 14:00 Ur Specific [place] 1.015 (1.010-1.030) 01/18/19 14:00 Urine Protein Negative (Negative) 01/18/19 14:00 Urine Ketones Trace (Negative) A 01/18/19 14:00 Urine Blood 2+ (Negative) A 01/18/19 14:00 Urine Nitrate Positive (Negative) A 01/18/19 14:00 Urine Bilirubin Negative (Negative) 01/18/19 14:00 Urine Urobilinogen Negative (Negative) 01/18/19 14:00 Ur Leukocyte Esterase Negative (Negative) 01/18/19 14:00 Urine WBC (Auto) Trace(0-5/hpf) (Absent) 01/18/19 14:00 Urine RBC (Auto) Trace(0-2/hpf) (Absent) 01/18/19 14:00 Urine Bacteria 2+ (Absent) A 01/18/19 14:00 Hyaline Casts Present (Absent) A 01/18/19 14:00 Urine Glucose Negative (Negative) 01/18/19 14:00 - Objective Active Medications: Acetaminophen (Tylenol Tab*) 650 mg PO Q4H PRN PRN Reason: FEVER/PAIN Amlodipine Besylate (Norvasc Tab*) 5 mg PO DAILY [facility] Last Admin: 01/21/19 07:52 Dose: 5 mg Aspirin (Aspirin Ec Tab*) 81 mg PO DAILY [facility] Last Admin: 01/21/19 07:52 Dose: 81 mg Atorvastatin Calcium (Lipitor*) 40 mg PO DAILY [facility] Last Admin: 01/21/19 07:52 Dose: 40 mg Calcium/Vitamin D (Oscal D Tab 250/125*) 2 tab PO DAILY [facility] Last Admin: 01/21/19 07:52 Dose: 2 tab Donepezil HCl (Aricept Tab*) 10 mg PO BEDTIME [facility] Last Admin: 01/20/19 21:01 Dose: 10 mg Furosemide (Lasix Tab*) 20 mg PO DAILY [facility] Last Admin: 01/21/19 07:52 Dose: 20 mg Heparin Sodium (Porcine) (Heparin Vial(*)) 5,000 units SUBCUT Q12HR [facility] Last Admin: 01/21/19 07:52 Dose: 5,000 units Ceftriaxone Sodium 1 gm/ (Sodium Chloride) 50 mls @ 200 mls/hr IVPB Q24H [facility] Last Admin: 01/20/19 15:55 Dose: 200 mls/hr Lorazepam (Ativan Inj*) 0.5 mg IV PUSH Q4H PRN PRN Reason: ANXIETY Last Admin: 01/21/19 02:26 Dose: 0.5 mg Losartan Potassium (Cozaar Tab*) 100 mg PO DAILY [facility] Last Admin: 01/21/19 07:51 Dose: 100 mg Metoprolol Tartrate (Lopressor Tab*) 25 mg PO BID [facility] Last Admin: 01/21/19 07:51 Dose: 25 mg Miscellaneous (Ativan Pyxis Delatorre) 1 ea N/A .ATIVAN IV DELATRORE PRN PRN Reason: PYXIS DELATORRE Ondansetron HCl (Zofran Inj*) 4 mg IV Q4H PRN PRN Reason: NAUSEA/VOMITING Paroxetine HCl (Paxil Tab*) 10 mg PO DAILY [facility] Last Admin: 01/21/19 07:52 Dose: 10 mg Vital Signs: Vital Signs: Temp Pulse Resp BP Pulse Ox 98.6 F 56 18 110/76 98 01/21/19 11:34 01/21/19 11:34 01/21/19 11:34 01/21/19 12:01 01/21/19 11:34 Patient Weight: Weight 44.089 kg Intake and Output: Intake & Output 01/19/19 01/20/19 01/21/19 01/22/19 06:59 06:59 06:59 06:59 Intake Total 120.4 886 877 Output Total 400 1800 Balance 120.4 486 -923 Weight 44.089 kg Intake: IV Fluids 10 Heparin 110.4 206 57 Oral 0 680 820 Output: Straight Cath 400 1800 Other: Estimated Void Medium Date of Last Bowel 01/19/19 Movement # Bowel Movements 1 0 Estimated Stool Amount Medium # Voids 1 2 ADLs: Meal Record Start: 01/18/19 16: 47 Freq: DAILY@0900,1400,1800 Status: Active Protocol: Created 01/18/19 16:47 System (Rec: 01/18/19 16:47 System TELE-C04) Document 01/18/19 18:00 [id number] (Rec: 01/18/19 21:26 [id number] TELE-C10) Document 01/19/19 09:00 [id number] (Rec: 01/19/19 13:13 [id number] TELE-C09) Document 01/19/19 13:52 [id number] (Rec: 01/19/19 13:53 [id number] TELE-C09) Document 01/20/19 09:00 [id number] (Rec: 01/20/19 10:29 [id number] TELE-C01) Document 01/20/19 14:00 [id number] (Rec: 01/20/19 15:13 [id number] MED-C11) Document 01/20/19 17:58 [id number] (Rec: 01/20/19 17:59 [id number] TELE-C11) Intake and Output Start: 01/18/19 12: 04 Freq: Status: Active Protocol: Created 01/18/19 12:04 System (Rec: 01/18/19 12:04 System [id number]) Intake and Output Start: 01/18/19 16: 47 Freq: DAILY@0600,1400,2200 Status: Active Protocol: Created 01/18/19 16:47 System (Rec: 01/18/19 16:47 System TELE-C04) Document 01/18/19 22:00 [id number] (Rec: 01/18/19 22:12 [id number] TELE-C09) Document 01/19/19 05:21 [id number] (Rec: 01/19/19 05:26 [id number] TELE-C13) Document 01/19/19 13:13 [id number] (Rec: 01/19/19 13:14 [id number] TELE-C09) Document 01/20/19 06:00 [id number] (Rec: 01/20/19 06:30 [id number] TELE-C10) Document 01/20/19 14:00 [id number] (Rec: 01/20/19 15:13 [id number] MED-C11) Document 01/20/19 22:00 [id number] (Rec: 01/20/19 22:41 [id number] TELE-C11) Document 01/21/19 06:00 [id number] (Rec: 01/21/19 06:13 [id number] TELE-M04) Eyes: No Scleral Icterus Neck: NL Appearance and Movements; NL JVP Cardiovascular: NL Sounds; No Murmurs; No JVD, RRR Respiratory: Symmetrical Chest Expansion and Respiratory Effort, Clear to Auscultation Abdominal: NL Sounds; No Tenderness; No Distention Extremities: No Edema - Assessment Assessment: 83yo female with dementia and new STEMI and UTI - Plan Consult Plan (MU): Palliative Plan: Spoke with daughter Avril(HCP) at pt bedside. Daughter has a good understanding of medical events and pts condition. The big issue is placement. It was agreed that pt would not be safe living alone on her own. If she is able to participate with PT then rehab is an option. She is also looking into assisted living at [place] if pt is eligible. We discussed hospice and daughter was familiar with the residence because her brother had stayed there. At this time I don't think pt qualifies but she can self refer at anytime. Hospice brochure was given. Also explained that [facility] & hospice benefit can be changed at anytime. I explained that pt could still pass within 6 months but it would be an unexpected illness. Also discussed that hospice can be done at a SNF. If she is to go to SNF daughter would like to see her go to a memory unit. Daughter is stressed at the moment with taking care of mothers fiances and potential placement. 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 KPS 50%, PPS 50% - Time On Unit Date of Evaluation: 01/21/19 Hospice Consult Time in: 13:30 Hospice Consult Time Out: 15:00 Hospice Consult Time Total: 90 > 50% of Time Spend In Counseling or Coordinating Care: Yes
--- NOTE | 2019-01-21 14:27 | PN ---
Subjective Date of Service: 01/21/19 Interval History: HOSPITALIST PROGRESS NOTE Patient seen and examined at bedside. Care reviewed and d/w Praveen Moss RN. She's pleasantly confused enjoying her meal. Offers no complaints. Does not remember she's in a hospital or why. Family History: Unchanged from Admission Social History: Unchanged from Admission Past Medical History: Unchanged from Admission Objective Active Medications: Acetaminophen (Tylenol Tab*) 650 mg PO Q4H PRN PRN Reason: FEVER/PAIN Amlodipine Besylate (Norvasc Tab*) 5 mg PO DAILY [facility] Last Admin: 01/21/19 07:52 Dose: 5 mg Aspirin (Aspirin Ec Tab*) 81 mg PO DAILY [facility] Last Admin: 01/21/19 07:52 Dose: 81 mg Atorvastatin Calcium (Lipitor*) 40 mg PO DAILY [facility] Last Admin: 01/21/19 07:52 Dose: 40 mg Calcium/Vitamin D (Oscal D Tab 250/125*) 2 tab PO DAILY [facility] Last Admin: 01/21/19 07:52 Dose: 2 tab Donepezil HCl (Aricept Tab*) 10 mg PO BEDTIME [facility] Last Admin: 01/20/19 21:01 Dose: 10 mg Furosemide (Lasix Tab*) 20 mg PO DAILY [facility] Last Admin: 01/21/19 07:52 Dose: 20 mg Heparin Sodium (Porcine) (Heparin Vial(*)) 5,000 units SUBCUT Q12HR [facility] Last Admin: 01/21/19 07:52 Dose: 5,000 units Ceftriaxone Sodium 1 gm/ (Sodium Chloride) 50 mls @ 200 mls/hr IVPB Q24H [facility] Last Admin: 01/20/19 15:55 Dose: 200 mls/hr Lorazepam (Ativan Inj*) 0.5 mg IV PUSH Q4H PRN PRN Reason: ANXIETY Last Admin: 01/21/19 02:26 Dose: 0.5 mg Losartan Potassium (Cozaar Tab*) 100 mg PO DAILY [facility] Last Admin: 01/21/19 07:51 Dose: 100 mg Metoprolol Tartrate (Lopressor Tab*) 25 mg PO BID [facility] Last Admin: 01/21/19 07:51 Dose: 25 mg Miscellaneous (Ativan Pyxis [place]) 1 ea N/A .ATIVAN IV COLLAZO PRN PRN Reason: PYXIS COLLAZO Ondansetron HCl (Zofran Inj*) 4 mg IV Q4H PRN PRN Reason: NAUSEA/VOMITING Paroxetine HCl (Paxil Tab*) 10 mg PO DAILY [facility] Last Admin: 01/21/19 07:52 Dose: 10 mg Vital Signs - 8 hr 01/21/19 01/21/19 01/21/19 07:47 08:00 11:34 Temperature 98.3 F 98.6 F Pulse Rate 68 56 Respiratory 18 16 18 Rate Blood Pressure 122/56 93/48 (mmHg) O2 Sat by Pulse 98 98 Oximetry 01/21/19 12:01 Temperature Pulse Rate Respiratory Rate Blood Pressure 110/76 (mmHg) O2 Sat by Pulse Oximetry Oxygen Devices in Use Now: None Appearance: Pleasantly confused elderly lady sitting up in bed in NAD Eyes: No Scleral Icterus Ears/Nose/Mouth/Throat: Mucous Membranes Moist Neck: Trachea Midline Respiratory: Symmetrical Chest Expansion and Respiratory Effort, Clear to Auscultation Cardiovascular: RRR - Normal S1 and S2 Neurological: - - AAOx1 (self only), LANDRUM Result Diagrams: 01/21/19 05:39 01/21/19 05:39 Assess/Plan/Problems-Billing Assessment: Mrs Baker is an 83yo F with PMH of CAD s/p stents, dementia, HLD, HTN, who presented to ED with STEMI. - Patient Problems (1) Myocardial infarction Comment: - Anterior STEMI noted on EKG - Appreciate cardiology input - Family opted for medical management and no intervention - Received heparin drip for 48h. - Continue aspirin, B missael,MARTÍN,statin - Remains CP free - No significant arrhythmias on Telemetry. (2) CHF exacerbation Comment: - Tamra s ystolic CHF - responded well to IV Furosemide - EF 25 to 30% - Continue PO lasix 20 mg - No signs of fluid overload at this time (3) UTI (urinary tract infection) Comment: - Urine culture growing pansensitive E. coli. - Continue Ceftriaxone (4) DVT prophylaxis Comment: - SQ heparin. Status and Disposition: Palliative care consult requested. Will likely need WESLEY.
[2019-01-21] MEDS: cefTRIAXone(*) 1 GM in NS 0.9% 50 ML* 50 ML IVPB SCH (16:51)
[2019-01-21] MEDS: Donepezil TAB* 5 MG PO SCH (19:23)
[2019-01-22] MEDS: Aspirin EC TAB* 81 MG TAB.EC PO SCH (07:53)
[2019-01-22] MEDS: Furosemide TAB* 20 MG PO SCH (07:53)
[2019-01-22] MEDS: Atorvastatin* 40 MG TAB PO SCH (07:53)
[2019-01-22] MEDS: amLODIPine TAB* 5 MG PO SCH (07:53)
[2019-01-22] MEDS: Losartan TAB* 25 MG PO SCH (07:53)
[2019-01-22] MEDS: Calcium/Vitamin D TAB 250/125* TAB PO SCH (07:53)
[2019-01-22] MEDS: Metoprolol Tartrate TAB* 25 MG PO SCH (07:54)
[2019-01-22] MEDS: PARoxetine HCL TAB* 10 MG PO SCH (07:54)
[2019-01-22] MEDS: Heparin VIAL(*) 5000 UNITS/ML VIAL (FIVE THOUSAND) SUBCUT SCH (07:54)
[2019-01-22 11:41] VITALS: BP 110/60
--- NOTE | 2019-01-22 11:51 | PN ---
Subjective Date of Service: 01/22/19 Interval History: HOSPITALIST PROGRESS NOTE Patient seen and examined at bedside. Care reviewed and d/w Praveen Moss RN. She offers no complaints today, pleasantly confused. Family History: Unchanged from Admission Social History: Unchanged from Admission Past Medical History: Unchanged from Admission Objective Active Medications: Acetaminophen (Tylenol Tab*) 650 mg PO Q4H PRN PRN Reason: FEVER/PAIN Last Admin: 01/21/19 19:23 Dose: 650 mg Amlodipine Besylate (Norvasc Tab*) 5 mg PO DAILY [facility] Last Admin: 01/22/19 07:53 Dose: 5 mg Aspirin (Aspirin Ec Tab*) 81 mg PO DAILY [facility] Last Admin: 01/22/19 07:53 Dose: 81 mg Atorvastatin Calcium (Lipitor*) 40 mg PO DAILY [facility] Last Admin: 01/22/19 07:53 Dose: 40 mg Calcium/Vitamin D (Oscal D Tab 250/125*) 2 tab PO DAILY [facility] Last Admin: 01/22/19 07:53 Dose: 2 tab Donepezil HCl (Aricept Tab*) 10 mg PO BEDTIME [facility] Last Admin: 01/21/19 19:23 Dose: 10 mg Furosemide (Lasix Tab*) 20 mg PO DAILY [facility] Last Admin: 01/22/19 07:53 Dose: 20 mg Heparin Sodium (Porcine) (Heparin Vial(*)) 5,000 units SUBCUT Q12HR [facility] Last Admin: 01/22/19 07:54 Dose: 5,000 units Ceftriaxone Sodium 1 gm/ (Sodium Chloride) 50 mls @ 200 mls/hr IVPB Q24H [facility] Last Admin: 01/21/19 16:51 Dose: 200 mls/hr Lorazepam (Ativan Inj*) 0.5 mg IV PUSH Q4H PRN PRN Reason: ANXIETY Last Admin: 01/21/19 21:46 Dose: 0.5 mg Losartan Potassium (Cozaar Tab*) 100 mg PO DAILY [facility] Last Admin: 01/22/19 07:53 Dose: 100 mg Metoprolol Tartrate (Lopressor Tab*) 25 mg PO BID [facility] Last Admin: 01/22/19 07:54 Dose: 25 mg Miscellaneous (Ativan Pyxis Collazo) 1 ea N/A .ATIVAN IV COLLAZO PRN PRN Reason: PYXIS COLLAZO Ondansetron HCl (Zofran Inj*) 4 mg IV Q4H PRN PRN Reason: NAUSEA/VOMITING Paroxetine HCl (Paxil Tab*) 10 mg PO DAILY [facility] Last Admin: 01/22/19 07:54 Dose: 10 mg Vital Signs - 8 hr 01/22/19 01/22/19 01/22/19 03:49 07:21 07:26 Temperature 97.7 F 98.4 F Pulse Rate 63 62 Respiratory 16 16 16 Rate Blood Pressure 102/64 117/60 (mmHg) O2 Sat by Pulse 97 99 Oximetry 01/22/19 11:25 Temperature 98.0 F Pulse Rate 58 Respiratory 18 Rate Blood Pressure 110/60 (mmHg) O2 Sat by Pulse 100 Oximetry Oxygen Devices in Use Now: None Appearance: Elderly lady sitting up in a chair in NAD. Eyes: No Scleral Icterus Ears/Nose/Mouth/Throat: Mucous Membranes Moist Neck: Trachea Midline Respiratory: Symmetrical Chest Expansion and Respiratory Effort, Clear to Auscultation Cardiovascular: RRR - Normal S1 and S2 Neurological: - - AAOx1 (self only), LANDRUM, pleasantly confused Result Diagrams: 01/21/19 05:39 01/21/19 05:39 Assess/Plan/Problems-Billing Assessment: Mrs Baker is an 83yo F with PMH of CAD s/p stents, dementia, HLD, HTN, who presented to ED with STEMI. - Patient Problems (1) Myocardial infarction Comment: - Anterior STEMI noted on EKG - Appreciate cardiology input - Family opted for medical management and no intervention - Received heparin drip for 48h. - Continue aspirin, B missael,MARTÍN,statin - Remains CP free - Had bradycardia in the high 40s, asymptomatic. No other significant arrhythmias on Telemetry - will d/c it. (2) CHF exacerbation Comment: - [place] systolic CHF - responded well to IV Furosemide - EF 25 to 30% - Continue PO lasix 20 mg - No signs of fluid overload at this time (3) UTI (urinary tract infection) Comment: - Urine culture growing pansensitive E. coli. - Continue Ceftriaxone (4) DVT prophylaxis Comment: - SQ heparin. Status and Disposition: Palliative care consult appreciated. Will need WESLEY.
--- NOTE | 2019-01-22 14:16 | DS ---
CC: Dr. Obrien* DISCHARGE SUMMARY: DATE OF ADMISSION: 01/18/19 DATE OF DISCHARGE: 01/22/19 PRIMARY CARE PROVIDER: Dr. Obrien. DISCHARGE DIAGNOSES: 1. ST-elevation myocardial infarction. 2. Escherichia coli urinary tract infection, present on admission. 3. Mild acute systolic congestive heart failure exacerbation. SECONDARY DIAGNOSES: 1. Coronary artery disease, status post 2 stents in 1998. 2. Osteoarthritis. 3. Anxiety. 4. Depression. 5. Hyperlipidemia. 6. Hypertension. 7. Dementia. 8. Rectal prolapse. 9. Uterine prolapse, status post surgical repair. MEDICATION LIST: 1. Calcium plus vitamin D 500 mg p.o. daily. 2. Aspirin 81 mg p.o. daily. 3. Amlodipine 5 mg p.o. daily. 4. Losartan 100 mg p.o. daily. 5. Paroxetine 10 mg p.o. daily. 6. Donepezil 10 mg p.o. at bedtime. 7. Atorvastatin 40 mg p.o. daily. New Medications: 1. Metoprolol tartrate 25 mg p.o. b.i.d. 2. Furosemide 20 mg p.o. Mondays, Wednesdays, and Fridays. 3. Cephalexin 500 mg p.o. q.8 hours for 3 more days. 4. Acetaminophen 650 mg p.o. q.4 hours p.r.n. pain or fever. HOSPITAL COURSE: Mrs. Baker is an 83-year-old lady with a past medical history as stated above that presented to the emergency room with complaints of progressive shortness of breath and worsening of her baseline confusion. For more details of her presentation, I refer you to her history and physical. In the emergency room, the patient had an EKG done that showed ST elevations from V1 to V3 and the patient was admitted for an ST-elevation DC. She was seen in consultation by Cardiology (Dr. Headley) and his impression was the patient had an anterior wall ST-elevation DC. After discussion with the patient's family, they had elected just medical therapy and did not want to pursue invasive measures. She was started on a heparin drip and received aspirin, statin, and a beta- missael. An echocardiogram was performed and it showed a reduced ejection fraction of 25 % to 30% with moderate diffuse hypokinesis, also hypokinesis of the mid apicolateral septal myocardium and when compared to her prior echo, her ejection fraction had dropped from 45% to 50% in 2017. For her CHF, the patient was diuresed with furosemide with good response and now she will be on furosemide on Mondays, Wednesdays, and Fridays as she appears to be euvolemic at this time. The patient was seen in consultation by Palliative Care (Dr. Rendon) and she felt that at this time, the patient would not qualify for hospice, but if she has further decline in her condition in the future, she could request another hospice evaluation. The patient was also found to have an E. coli urinary tract infection that was present on admission. The E. coli was pansensitive and the patient was treated with ceftriaxone while in the hospital and she is being transitioned to cephalexin at this time. She has normal renal function. The patient was felt to have rehab needs and she was offered a bed at [facility] to continue her rehabilitation process. Her daughter is planning to place the patient on assisted living after she is discharged from [facility]. PHYSICAL EXAMINATION: Vital Signs: Temperature 98.0, heart rate is 58, respiratory rate is 18, oxygen saturation is 100% on room air, blood pressure is 110/60. General: The patient is a pleasantly confused lady, sitting up in chair, in no acute distress. CVS: Normal S1 and S2. Regular rate and rhythm. Chest: Breath sounds present bilaterally with no added sounds. Abdomen is soft. Bowel sounds are present. Extremities: No edema. Neuro: She is alert , awake and oriented x1 to self only, follows commands, moves all 4 extremities. DISPOSITION: To [facility]. STATUS WHILE IN THE HOSPITAL: Inpatient. DIET: Heart-healthy diet. ACTIVITIES: As tolerated. The patient should avoid excessive physical exertion. CONDITION: Guarded. Please keep in mind this is a summarized version of this patient's hospital stay. If you need more information, please feel free to call me at [phone] or please refer to full medical records. TIME SPENT: Approximately 45 minutes was spent to complete this discharge. [id number]/CPS #: [id number] TITO
== END 2019-01-22 15:18 | DRG 280 ==
LOC: ED 11:50 → MEDTELE 15:53
PROVIDERS: ADMIT Student in an Organized Health Care Education/Training Program; ATTEND Internal Medicine
DX: I21.09 ST elevation (STEMI) myocardial infarction involving other coronary artery of anterior wall (principal); I50.21 Acute systolic (congestive) heart failure; N39.0 Urinary tract infection, site not specified; F05 Delirium due to known physiological condition; I25.10 Atherosclerotic heart disease of native coronary artery without angina pectoris; F32.9 Major depressive disorder, single episode, unspecified; I11.0 Hypertensive heart disease with heart failure; E78.5 Hyperlipidemia, unspecified; F03.90 Unspecified dementia, unspecified severity, without behavioral disturbance, psychotic disturbance, mood disturbance, and anxiety; R44.1 Visual hallucinations; Z66 Do not resuscitate; F41.9 Anxiety disorder, unspecified; R33.9 Retention of urine, unspecified; B96.20 Unspecified Escherichia coli [E. coli] as the cause of diseases classified elsewhere; M19.90 Unspecified osteoarthritis, unspecified site; Z95.5 Presence of coronary angioplasty implant and graft; Z79.82 Long term (current) use of aspirin; Z79.899 Other long term (current) drug therapy; Z82.49 Family history of ischemic heart disease and other diseases of the circulatory system; Z83.79 Family history of other diseases of the digestive system; Z87.891 Personal history of nicotine dependence
CPT/HCPCS: 36415; 70450; 71046; 80048; 80053; 80061; 81003; 81015; 82550; 82553; 82565; 83036; 83605; 83880; 84484; 84520; 85025; 85060; 85610; 85730; 86140; 87040; 87077; 87086; 87186; 93005; 93306; 99283; A9270-GY; G8978-GP-CJ; G8979-GP-CH; G8987-GO-CJ; G8988-GO-CI; J0696; J1644; J1940; J2060

== ENCOUNTER 2019-06-03 23:43 | Emergency (ER) | payer MEDICARE ==
--- NOTE | 2019-06-04 00:03 | ED ---
Altered Mental Status - HPI Summary HPI Summary: The patient is an 84 y/o F arriving by ambulance to [facility] with a chief complaint of combative episode at [facility] tonight. EMS reports that the pt had been acting out against staff, and when they were trying to calm her down when she had a fall and hit her head, to which she is now suffering an injury on the occiput. She denies any other symptoms. Currently, her symptoms are rated 0/10 in severity. There are no aggravating or alleviating factors. PMHx: CAD, HTN, dementia. Nonsmoker, no EtOH, no substance use. Medications reviewed. Allergies noted. - History Of Current Complaint Chief Complaint: EDAltMentalStatus Stated Complaint: AGITATED PER EMS Time Seen by Provider: 06/03/19 23:55 Hx Obtained From: Patient, EMS Onset/Duration: Suddenly Timing: Lasting Minutes Severity Initially: Moderate Severity Currently: Mild Aggravating Factor(s): Other - trying to be calmed down by staff and fell Alleviating Factor(s): Nothing Associated Signs And Symptoms: Positive: Recent Trauma - head injury with fall - Allergies/Home Medications Allergies/Adverse Reactions: Allergies Allergy/AdvReac Type Severity Reaction Status Date / Time No Known Allergies Allergy Verified 01/18/19 13:11 PMH/Surg Hx/FS Hx/Imm Hx Cardiovascular History: Reports: Hx Coronary Artery Disease, Hx Hypertension, Other Cardiovascular Problems/Disorders - stents Respiratory History: Denies: Other Respiratory Problems/Disorders Musculoskeletal History: Reports: Hx Back Problems - Marked thoracic kyphosis Sensory History: Denies: Hx Contacts or Glasses, Hx Hearing Aid Opthamlomology History: Denies: Hx Contacts or Glasses Neurological History: Reports: Hx Dementia - Surgical History Surgical History: Yes Surgery Procedure, Year, and Place: cardiac stents Infectious Disease History: No Infectious Disease History: Denies: Traveled Outside the [place] in Last 30 Days - Family History Known Family History: Negative: Cardiac Disease, Hypertension, Diabetes - Social History Alcohol Use: None Hx Substance Use: No Substance Use Type: Reports: None Hx Tobacco Use: No Smoking Status (MU): Never Smoked Tobacco Review of Systems Neurological: Other - occipital head injury with fall Psychological: Other - combative All Other Systems Reviewed And Are Negative: Yes Physical Exam - Summary Physical Exam Summary: Appearance: Well-appearing, Well-nourished, lying in bed comfortably Skin: Warm, dry, no obvious rash Eyes: sclera anicteric, no conjunctival pallor Head: Large occipital scalp hematoma with no laceration or bleeding ENT: mucous membranes moist, pharynx appears normal Neck: Supple, nontender Respiratory: Clear to auscultation, no signs of respiratory distress Cardiovascular: Normal S1, S2. No murmurs. Normal distal pulses in tibial and radial bilaterally. Abdomen: Soft, nontender, normal active bowel sounds present Musculoskeletal: Normal, Strength/ROM Intact Neurological: A&Ox3, awake and alert, mentation is normal, speech is fluent and appropriate, GCS: 15 Psychiatric: affect is normal, does not appear anxious or depressed Triage Information Reviewed: Yes Vital Signs On Initial Exam: Initial Vitals Temp Pulse Resp BP Pulse Ox 98.0 F 77 18 129/62 96 06/03/19 23:50 06/03/19 23:50 06/03/19 23:50 06/03/19 23:50 06/03/19 23:50 Vital Signs Reviewed: Yes - [place] Coma Scale Best Eye Response: 4 - Spontaneous Best Motor Response: 6 - Obeys Commands Best Verbal Response: 5 - Oriented Coma Scale Total: 15 Diagnostics - Vital Signs Vital Signs Temp Pulse Resp BP Pulse Ox 06/03/19 23:50 98.0 F 77 18 129/62 96 - Laboratory Result Diagrams: 06/04/19 00:06 06/04/19 00:06 Lab Statement: Any lab studies that have been ordered have been reviewed, and results considered in the medical decision making process. - CT Brain CT CT Interpretation Completed By: Radiologist Summary of CT Findings: Impression: 1. No acute intracranial findings. Age- related atrophy and chronic white matter ischemic change. 2. Left posterior scalp hematoma. ED physician has reviewed this imaging report. - EKG 0008 Cardiac Rate: NL - 63 BPM EKG Rhythm: Sinus Rhythm Summary of EKG Findings: NSR at 63 BPM, anterior Q waves with ST slurring. No STEMI. Re-Evaluation - Re-Evaluation First Eval Re-Evaluation Time: 01:25 Change: Unchanged Comment: We discussed results and plan for discharge home. Altered Mental Statu Course/Dx - Course Course Of Treatment: Pt is an 84 y/o F with cc of occipital head injury after a fall while she was being calmed down during a combative episode tonight. Upon physical exam, the pt exhibits a large occipital scalp hematoma without any laceration or bleeding. UA obtained and is consistent with infection revealing 2 + blood, positive nitrates, 3+ leukocytes esterase, 3+ WBCs, presence of squamous epithelial cells, 1+ bacteria, and presence of hyaline casts. She does have multiple urinalysis samples with pyuria, and shes also had positive cultures on those. EKG at 0008 reveals NSR at 63 BPM with anterior Q waves and ST slurring. Brain CT is negative for acute intracranial findings but reveals left posterior scalp hematoma. In the ED course, the pt was administered Tylenol for pain and Keflex as first dose for treating urine infection. We discussed all results and plan for discharge back to [place] with rx for Keflex. She understands and agrees with this plan. Dx of UTI and dementia. - Diagnoses Provider Diagnoses: UTI (urinary tract infection), Dementia Discharge ED - Sign-Out/Discharge Documenting (check all that apply): Patient Departure - Patient will be discharged home. Patient Received Moderate/Deep Sedation with Procedure: No - Discharge Plan Condition: Good Disposition: HOME Prescriptions: Cephalexin CAP* [Keflex CAP*] 500 mg PO QID #28 cap Cephalexin CAP* [Keflex CAP*] 500 mg PO QID #28 cap MDD 4 Patient Education Materials: Dementia (ED), Urinary Tract Infection in Older Adults (ED) Referrals: Antonella Obrien MD [Primary Care Provider] - - Billing Disposition and Condition Condition: GOOD Disposition: Home - Attestation Statements Document Initiated by Jessieibe: Yes Documenting Scribe: Aaliyah Govea Provider For Whom Justine is Documenting (Include Credential): Dr. Angel Fabian MD Scribe Attestation: Aaliyah Allen scribed for Dr. Angel Fabian MD on 06/09/19 at 1224. Scribe Documentation Reviewed: Yes Provider Attestation: The documentation as recorded by the Aaliyah hein accurately reflects the service I personally performed and the decisions made by me, Dr. Angel Fabian MD Status of Scribe Document: Viewed
[2019-06-04 00:14] LABS: Hematocrit 40 % (35-47); Hemoglobin 13.4 g/dL (12.0-16.0); Mean Corpuscular HGB Conc 33 g/dL (31-36); Mean Corpuscular Hemoglobin 31 pg (27-31); Mean Corpuscular Volume 92 fL (80-97); Mean Platelet Volume 7.7 fL (7.4-10.4); Platelet Count 191 10^3/uL (150-450); Red Blood Count 4.38 10^6 /uL (3.70-4.87); Red Cell Distribution Width 15 % (10-15)
[2019-06-04 00:36] LABS: ALT 5 U/L (7-52); AST 20 U/L (13-39); Albumin 4.2 g/dL (3.2-5.2); Albumin/Globulin Ratio 1.6 (1-3); Alkaline Phosphatase 58 U/L (34-104); Anion Gap 7 mmol/L (2-11); BUN/Creatinine Ratio 22.1 (8-20); Blood Urea Nitrogen 27 mg/dL (6-24); C Reactive Protein < 1.00 mg/L (<8.01); CO2 Carbon Dioxide 25 mmol/L (22-32); Calcium 9.3 mg/dL (8.6-10.3); Chloride 103 mmol/L (101-111); EGFR African American 50.6 (>60); EGFR Non-African American 41.8 (>60); Globulin 2.7 g/dL (2-4); Glucose 143 mg/dL (70-100); Sodium 135 mmol/L (135-145); Total Protein 6.9 g/dL (6.4-8.9)
[2019-06-04 01:08] LABS: ABS Basophils 0.1 10^3/ul (0-0.2); ABS Eosinophils 0.6 10^3/ul (0-0.6); ABS Lymphocytes 1.3 10^3/ul (1.0-4.8); ABS Monocytes 0.7 10^3/ul (0-0.8); ABS Neutrophils 5.4 10^3/ul (1.5-7.7); Eosinophil % 7.3 %; Lymphocyte % 16.2 %
[2019-06-04 01:20] LABS: Urine Appearance Cloudy; Urine Bacteria 1+ (Absent); Urine Bilirubin Negative (Negative); Urine Blood 2+ (Negative); Urine Color Yellow; Urine Glucose Negative (Negative); Urine Ketones Negative (Negative); Urine Nitrite Positive (Negative); Urine Protein Negative (Negative); Urine Red Blood Cell Trace(0-2/hpf) (Absent); Urine Squamous Epithelial Cell Present (Absent); Urine Urobilinogen Negative (Negative); Urine White Blood Cell 3+(>20/hpf) (Absent)
[2019-06-04] MEDS ORDERED: Cephalexin CAP* 500 MG PO ONE (01:21)
[2019-06-04] MEDS ORDERED: Acetaminophen TAB* 325 MG PO ONE (01:21)
[2019-06-04 02:21] VITALS: BP 154/84
--- NOTE | 2019-06-06 08:26 | PN ---
Progress Note - Progress Note Date of Service: 06/04/19 Note: Urine culture preliminary grew Escherichia coli 100,000 Patient was placed on Keflex prior to discharge This is sensitive to organism Nothing further required
== END 2019-06-04 02:19 | disposition home or self-care (01) ==
LOC: ED 23:43
DX: N39.0 Urinary tract infection, site not specified (principal); I25.10 Atherosclerotic heart disease of native coronary artery without angina pectoris; I10 Essential (primary) hypertension; F03.90 Unspecified dementia, unspecified severity, without behavioral disturbance, psychotic disturbance, mood disturbance, and anxiety; Z91.81 History of falling
CPT/HCPCS: 36415; 70450; 80053; 81003; 81015; 83605; 85025; 85060; 86140; 87077; 87086; 87186; 93005; 99282; A9270-GY